=== PATIENT | female | born 1965 | race Two or more races ===

== ENCOUNTER 2016-03-13 19:51 | Emergency (ER) | payer MEDICAID, OTHER ==
[~2016-03-13] VITALS: Ht 165.1 cm; Wt 83.9 kg
[2016-03-14 05:20] LABS: Urine Bilirubin Negative (Negative); Urine Blood Negative /uL (Negative); Urine Color Yellow (Yellow); Urine Glucose Normal (Normal); Urine Ketone Negative (Negative); Urine Nitrite Negative (Negative); Urine RBC 4 /hpf (0 - 4); Urine Squamous Epithelial Cell FEW /hpf (<5); Urine Urobilinogen Normal (Negative); Urine pH 5.5 (5.0-8.0)
[2016-03-14 06:43] VITALS: BP 102/56
[2016-03-14] MEDS ORDERED: BACLOFEN 10 MG TAB PO ONE (07:45)
[2016-03-14] MEDS ORDERED: HYDROcodone-ACET 5/325MG TAB PO ONE (07:45)
== END 2016-03-14 08:17 | disposition home or self-care (01) ==
LOC: ER 20:10
DX: S16.1XXA Strain of muscle, fascia and tendon at neck level, initial encounter (principal); N39.0 Urinary tract infection, site not specified; R51 Headache; M47.9 Spondylosis, unspecified; R07.9 Chest pain, unspecified; M25.552 Pain in left hip; V49.9XXA Car occupant (driver) (passenger) injured in unspecified traffic accident, initial encounter; Y93.89 Activity, other specified; Y99.8 Other external cause status; Y92.89 Other specified places as the place of occurrence of the external cause
CPT/HCPCS: 70450; 71010; 72125; 72131; 81001

== ENCOUNTER 2016-05-04 15:22 | Emergency (ER) | payer MEDICAID ==
[~2016-05-04] VITALS: Ht 170.2 cm; Wt 88.5 kg
[2016-05-04] MEDS ORDERED: HYDROcodone-ACET 10/325MG TAB PO ONE (16:15)
[2016-05-04] MEDS ORDERED: BACITRACIN-POLYMYXIN B TOPICAL OINT UD TOP ONE (18:09)
[2016-05-04 18:10] VITALS: BP 147/73
== END 2016-05-04 18:31 | disposition home or self-care (01) ==
LOC: EDBD 15:22 → ER 15:22
DX: S93.402A Sprain of unspecified ligament of left ankle, initial encounter (principal); S60.221A Contusion of right hand, initial encounter; S40.011A Contusion of right shoulder, initial encounter; S09.8XXA Other specified injuries of head, initial encounter; Z87.891 Personal history of nicotine dependence; Z90.49 Acquired absence of other specified parts of digestive tract; G89.29 Other chronic pain; M54.9 Dorsalgia, unspecified; Y08.89XA Assault by other specified means, initial encounter; Y93.89 Activity, other specified; Y99.8 Other external cause status; Y92.511 Restaurant or cafe as the place of occurrence of the external cause
CPT/HCPCS: 70450; 73120; 73600

== ENCOUNTER 2016-05-07 18:10 | Emergency (ER) | payer MEDICAID ==
[~2016-05-07] VITALS: Ht 165.1 cm; Wt 89.8 kg
[2016-05-07 20:46] VITALS: BP 133/76
== END 2016-05-07 21:56 | disposition home or self-care (01) ==
LOC: ER 18:27
DX: S30.0XXA Contusion of lower back and pelvis, initial encounter (principal); Z90.49 Acquired absence of other specified parts of digestive tract; Z87.891 Personal history of nicotine dependence; Y08.89XA Assault by other specified means, initial encounter; Y93.89 Activity, other specified; Y99.8 Other external cause status; Y92.89 Other specified places as the place of occurrence of the external cause
CPT/HCPCS: 72100

== ENCOUNTER 2016-12-18 20:47 | Emergency (ER) | payer MEDICAID ==
[~2016-12-18] VITALS: Ht 162.6 cm; Wt 86.2 kg
[2016-12-18 21:06] VITALS: BP 132/54
[2016-12-19] MEDS ORDERED: IBUPROFEN 600 MG TAB PO ONE (01:15)
== END 2016-12-19 01:54 | disposition home or self-care (01) ==
LOC: ER 20:57
DX: S90.32XA Contusion of left foot, initial encounter (principal); M77.32 Calcaneal spur, left foot; Z90.49 Acquired absence of other specified parts of digestive tract; W19.XXXA Unspecified fall, initial encounter; Y93.89 Activity, other specified; Y99.8 Other external cause status; Y92.89 Other specified places as the place of occurrence of the external cause
CPT/HCPCS: 73630; 99284; L3260